=== PATIENT | male | born 1985 | race Caucasian/White ===

== ENCOUNTER 2024-06-22 20:36 | Emergency (ER) | payer OTHER, SELFPAY ==
[2024-06-22 20:38] VITALS: BP 150/97
--- NOTE | 2024-06-22 22:02 | ED.GENMED ---
History of Present Illness
General
Chief Complaint: Skin Surface Trauma
Source: patient
Time Seen by Provider: 06/22/24 21:30
History of Present Illness
History of Present Illness:
38-year-old male with no significant past medical history presenting the emergency department for evaluation after sustaining a laceration to his right index finger while in a rugby game. Patient is right-hand dominant. No other injuries were
sustained. Tetanus is up-to-date.
Past History
Past History
ED Past Medical History: None
ED Past Surgical History: None
Social History
Tobacco: Non-smoker
Alcohol: Occasional
Drug: None
Personal:
Living: with family
Employment: Employed
Review of Systems
Review of Systems
All Other Systems: ROS reviewed and negative except as documented in HPI and ROS
Phy Exam
Physical Exam
Physical Exam:
GENERAL: Alert , in no apparent distress
EYE: conjunctiva clear
Head: Normocephalic atraumatic
NECK: Supple,
ENT: mmm.
LUNGS: no acute respiratory distress
NEUROLOGICAL: Alert and oriented
SKIN: Warm and dry, superficial laceration along the joint line of the medial and distal phalanx. No active bleeding. Patient is able to flex and extend finger without any difficulty. Sensation intact
MUSCULOSKELETAL: well perfused.
PSYCH: Normal and appropriate interaction.
Scores
Heart Failure Risk
Heart Failure Risk Score: Not Applicable
Heart Score for Chest Pain Patients
STEMI patient?: Not applicable
Withdrawal Assessment of Alcohol
Withdrawal Assessment Completed?: Not applicable
Course
Vital Signs
Initial and Last Documented VS:
Initial Vital Signs
Temp Pulse Resp BP Pulse Ox
99 F 93 18 150/97 97
06/22/24 20:38 06/22/24 20:38 06/22/24 20:38 06/22/24 20:38 06/22/24 20:38
Last Documented Vital Signs
Temp Pulse Resp BP Pulse Ox
99 F 93 18 150/97 97
06/22/24 20:38 06/22/24 20:38 06/22/24 20:38 06/22/24 20:38 06/22/24 20:38
Procedures
Laceration Closure
Right Second Finger:
Status of Wound: clean
Size of Wound in cm: 0.9
Description of Wound Edges: sharp
Preparation: cleaned with saline
Type of Closure: Dermabond-skin glue
MDM/Problems Addressed
Differential Diagnosis Includes:
simple laceration, no concern for tendon involvement or nerve injury
MDM/Problems Addressed:
38-year-old male presenting emergency department for evaluation of a superficial laceration to the right index finger. Laceration repaired as above without complication. Patient advised on wound care. Otherwise stable for discharge home
*Pulse Oximetry
Patient hypoxic: no
*Critical Care Note
Total Time (30-74mins, 75-104mins- exclusive of procedures): Not Applicable
ED Attending Note
-
Portions of this chart may have been created with voice recognition software.� Occasional wrong word or��sound alike� substitutions may have occurred due to the inherent limitations of voice recognition software.
Discharge Plan
Departure
Patient Disposition: Home (Routine Discharge)
Date of Disposition: 06/22/24
Time of Disposition: 22:02
Patient with high blood pressure during this ER visit?: Yes
Discharge Problem:
Laceration of right index finger
Instructions: Laceration Repair With Glue (DC)
Referrals:
UNKNOWN - PT DOES,NOT KNOW [Family Provider] -
Interventions
Interventions:
*Risk Screen - Suicide Last Done: 06/22/24 21:58
*General Assessment Last Done: 06/22/24 21:58
*Neglect/Abuse Screening Last Done: 06/22/24 21:58
*ED COVID-19 Vaccine History Last Done: 06/22/24 21:58
*Nursing Disposition Last Done: 06/22/24 22:07
ED-Skin Assessment Last Done: 06/22/24 21:58
Discharge Date and Time
Print Language: FINNISH
== END 2024-06-22 22:07 | disposition home or self-care (01) ==
LOC: EMR 20:36
PROVIDERS: EMERGENCY PHYSICIAN Emergency Medicine
DX: S61.210A Laceration without foreign body of right index finger without damage to nail, initial encounter (principal); X58.XXXA Exposure to other specified factors, initial encounter
CPT/HCPCS: 99282; 12001